=== PATIENT | male | born 1985 | race Caucasian/White ===

== ENCOUNTER 2022-08-29 22:14 | Emergency (ER) | payer OTHER ==
[2022-08-29 22:25] VITALS: BP 111/80
[2022-08-29] MEDS ORDERED: OCTYL 2-CYANOACRYLATE 1 EACH TP ONE (23:21)
[2022-08-29] MEDS ORDERED: TETANUS/DIPHTHERIA TOXOID [ADULT] 0.5 ML VIAL IM ONE (23:30)
== END 2022-08-30 | disposition home or self-care (01) ==
LOC: EDH 22:14
DX: S61.512A Laceration without foreign body of left wrist, initial encounter (principal); W26.8XXA Contact with other sharp object(s), not elsewhere classified, initial encounter; Y93.89 Activity, other specified; Y92.89 Other specified places as the place of occurrence of the external cause; Y99.8 Other external cause status
CPT/HCPCS: 12002; 90471; 90714